=== PATIENT | female | born 1995 | race Caucasian/White ===

== ENCOUNTER 2017-01-12 09:49 | Emergency (ER) | payer SELFPAY ==
[2017-01-12 09:54] VITALS: BP 114/63; PULSE 60; TEMP 99; BMI 21.2
[2017-01-12 10:08] LABS: PH,URINE 5.5 (4.5-8); URINE APPEARANCE CLOUDY; URINE BILIRUBIN Negative (NEGATIVE); URINE BLOOD 3+ (NEGATIVE); URINE COLOR ORANGE; URINE GLUCOSE (UA) Trace (NEGATIVE); URINE KETONE Negative (NEGATIVE); URINE LEUK ESTERASE 1+ (NEGATIVE); URINE NITRITE Positive (NEGATIVE); URINE PROTEIN 2+ (NEGATIVE); URINE UROBILINOGEN 0.2 E.U/dl (0.2-1.0)
[2017-01-12 10:10] LABS: URINE BACTERIA MANY /hpf (NEGATIVE); URINE RBC 30-50 /hpf (0-3)
--- NOTE | 2017-01-12 10:11 | PDOC ---
History of Present Illness - General Chief Complaint: Urinary Problem Stated Complaint: ABD PRESSURE, DYSURIA, FREQUENCY ON URINATION Time Seen by Provider: 01/12/17 10:10 - History of Present Illness Initial Comments: 01/12/17 10:37 Chief complaint: UTI symptoms for 1 week History of present illness: Patient complains of dysuria, frequency, urgency, and hematuria for approximately one week. She has been trying to drink lots of fluids but otherwise has been on no treatment. This morning she woke up with nausea, vomited several times, clear fluid no blood. Began experiencing bilateral low back ache. No diarrhea, with normal bowel movement yesterday Review of systems: As above. In addition, no chest pain, shortness of breath, abdominal pain, visual or focal neurologic symptoms, unsteadiness of gait, fever /chills, lightheadedness, dizziness, vertigo. Denies vaginal discharge or bleeding at present. Denies vaginal lesions, lumps, sores, or blisters of the perineal area. Last menstruation one week ago, no missed menses, sexually active with no contraception. 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 Had "worms in her stool" when she was a child, but otherwise no GI disease. No recent hospitalizations. No surgeries Social/family history: Lives with family, employed, denies tobacco alcohol or nonprescription drugs. Denies family history of early coronary artery disease, metabolic disease including diabetes, GI or kidney disease, or cancer Physical exam: Alert and oriented 3, well-developed well-nourished, no acute distress, cheerful and cooperative. Does not appear to be nauseated or retching at the moment. Afebrile, vital signs normal No pallor or icterus. PERRLA, ENT clear Neck supple without bruit mass or nodes Lungs clear CV regular without murmur rub or gallop Abdomen soft nontender without mass or organomegaly. Bowel sounds normal. Nondistended No CVAT. However, points to "achiness" across the sacral area bilaterally Skin clear, no rash, adequate turgor and what mucous membranes Neurological intact Extremities no CCE Impression: UTI, cystitis, possibly progressing to pyelonephritis. Alternatively , this could be a superimposed acute gastroenteritis. 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 Plan: Urinalysis, urine culture, CBC and chemistries. 01/12/17 12:08 Past History - Past Medical History Allergies/Adverse Reactions: Allergies Allergy/AdvReac Type Severity Reaction Status Date / Time No Known Allergies Allergy Verified 01/12/17 09:50 Home Medications: Ambulatory Orders Ciprofloxacin [Cipro -] 250 mg PO BID #14 tablet 01/12/17 Multivitamins [Multivit ([facility] Formul[facility])] 1 tab PO DAILY 01/12/17 Ondansetron [Zofran Odt -] 4 mg SL TID PRN #10 od.tablet 01/12/17 Phenazopyridine HCl [Pyridium] 200 mg PO TID PRN #12 tablet 01/12/17 Other medical history: DENIES - Reproductive History Is Patient Now?: No - Psycho/Social/Smoking Cessation Hx Anxiety: No Suicidal Ideation: No Smoking Status: No Smoking History: Never smoked Have you smoked in the past 12 months: Yes Number of Cigarettes Smoked Daily: 5 Information on smoking cessation initiated: Yes Hx Alcohol Use: Yes (social) *Physical Exam - Vital Signs Last Vital Signs Temp Pulse Resp BP Pulse Ox 99 F 60 18 114/63 100 01/12/17 09:50 01/12/17 09:50 01/12/17 09:50 01/12/17 09:50 01/12/17 09:50 ED Treatment Course - LABORATORY CBC & Chemistry Diagram: 01/12/17 10:40 01/12/17 10:40 - ADDITIONAL ORDERS Additional order review: Laboratory Results 01/12/17 10:01 Urine Color [place] Urine Appearance Cloudy Urine pH 5.5 Ur Specific [place] 1.010 Urine Protein 2+ H Urine Glucose (UA) Trace Urine Ketones Negative Urine Blood 3+ H Urine Nitrite Positive Urine Bilirubin Negative Urine Urobilinogen 0.2 e.u/dl Ur Leukocyte Esterase 1+ H Urine HCG, Qual Negative Medical Decision Making - Medical Decision Making 01/12/17 12:08 WBC equal 11.1, remainder CBC and chemistries are normal. Patient has been in no discomfort, with no nausea or vomiting during observation in the ER. She is walking around well and taking by mouth fluids Urinalysis shows lots of red cells, some white cells, nitrite, and leukocyte esterase. test is negative. Begun on antibiotics, Pyridium, and Zofran as needed. Follow-up with primary physician. Fully ambulatory and in no pain or other distress upon discharge with her family. *DC/Admit/Observation/Transfer Diagnosis at time of Disposition: UTI (urinary tract infection) Qualifiers: Urinary tract infection type: acute cystitis Hematuria presence: with hematuria Qualified Code(s): N30.01 - Acute cystitis with hematuria - Discharge Dispostion Disposition: HOME Condition at time of disposition: Improved Admit: No - Prescriptions Prescriptions: Ciprofloxacin [Cipro -] 250 mg PO BID #14 tablet Phenazopyridine HCl [Pyridium] 200 mg PO TID PRN #12 tablet PRN Reason: painful urination Ondansetron [Zofran Odt -] 4 mg SL TID PRN #10 od.tablet PRN Reason: Nausea And/Or Vomiting - Referrals Referrals: Main Cortez MD [Staff Physician] - - Patient Instructions Printed Discharge Instructions: DI for Urinary Tract Infection (UTI) Additional Instructions: Return to ER if there is fever or chills or abdominal/increased back pain.
[2017-01-12] MEDS ORDERED: ONDANSETRON 4 MG/2 ML VIAL IVPB ONE (10:25)
[2017-01-12] MEDS ORDERED: ONDANSETRON 4 MG/2 ML VIAL ONE (10:32)
[2017-01-12] MEDS ORDERED: SODIUM CHLORIDE 500 ML IV STA (10:50)
[2017-01-12 11:24] LABS: MCH 28.2 pg (25.7-33.7); MCHC 32.7 g/dl (32.0-36.0); MEAN CELL VOLUME 86.1 fl (80-96); MEAN PLT VOLUME 10.1 fl (7.5-11.1); PLATELET COUNT 211 K/MM3 (134-434)
[2017-01-12 11:52] LABS: ALBUMIN 4.1 g/dl (3.5-5.0); ALK PHOS 50 U/L (32-92); ANION GAP 8 (8-16); BILIRUBIN,TOTAL 0.3 mg/dl (0.2-1.0); CALCIUM 9.6 mg/dl (8.4-10.2); CO2 25 mmol/L (22-28); CREATININE 0.7 mg/dl (0.6-1.3); GLUCOSE,RANDOM 104 mg/dl (74-106); SGOT/AST 22 U/L (10-42); SGPT/ALT 19 U/L (10-40); TOT PROT 6.8 g/dl (6.4-8.3)
== END 2017-01-12 12:20 | disposition home or self-care (01) ==
LOC: FER 09:49
PROC: 3E033GC Introduction of Other Therapeutic Substance into Peripheral Vein, Percutaneous Approach (ICD-10-PCS; principal; 2017-01-12)
PROC: 3E0337Z Introduction of Electrolytic and Water Balance Substance into Peripheral Vein, Percutaneous Approach (ICD-10-PCS; 2017-01-12)
DX: N30.01 Acute cystitis with hematuria (principal); Z87.891 Personal history of nicotine dependence
CPT/HCPCS: 36415; 80053; 81003; 81015; 84703; 85025; 87086; 87186; 99285-25

== ENCOUNTER 2017-08-28 15:46 | Emergency (ER) | payer SELFPAY ==
[2017-08-28 15:51] VITALS: BP 112/68; PULSE 84; TEMP 98.6; BMI 20.2
[2017-08-28] MEDS ORDERED: KETOROLAC TROMETHAMINE 30 MG/1 ML VIAL IM ONE (15:55)
[2017-08-28] MEDS ORDERED: diazePAM 5 MG TABLET PO ONE (15:56)
[2017-08-28] MEDS ORDERED: ACETAMINOPHEN 325 MG TABLET (FP) PO ONE (15:56)
[2017-08-28] MEDS ORDERED: FLUCONAZOLE 50 MG TABLET PO ONE (16:18)
--- NOTE | 2017-08-28 16:20 | PDOC ---
History of Present Illness - General History Source: Patient Exam Limitations: No Limitations <Maria Teresa Baldears - Last Filed: 08/28/17 16:15> - General History Source: Patient Exam Limitations: No Limitations - History of Present Illness Initial Comments: 08/28/17 16:33 The patient is a 22 year old female with a significant past medical history of yeast infections, who presents to the ED with constant vaginal dryness, itchiness around the vagina, and white thick vaginal discharge. Patient complains of some dysuria as well, but denies flank pain or lower abdominal pain. Denies frequency, hematuria. Patient states she tried vagisil but with no relief. She states she has been sexually active with one partner and has been using condoms. She has no concerns for std exposures. Denies vaginal discharge, bleeding, odor. Patient denies any new changes in detergents, hair coloring, condoms. <Tony Keller - Last Filed: 08/28/17 16:36> - General Chief Complaint: Vaginal Sxs Stated Complaint: VAGINAL DRYNESS,BURNING AND IRRITATION X 2 WEEKS Time Seen by Provider: 08/28/17 15:49 Past History - Past Medical History Other medical history: PT DENIES - Suicide/Smoking/Psychosocial Hx Smoking Status: No Smoking History: Current some day smoker Have you smoked in the past 12 months: No Number of Cigarettes Smoked Daily: 1 Information on smoking cessation initiated: Yes 'Breaking Loose' booklet given: 01/12/17 Hx Alcohol Use: No Drug/Substance Use Hx: No Substance Use Type: None <Maria Teresa Balderas - Last Filed: 08/28/17 16:15> <Tony Keller - Last Filed: 08/28/17 16:36> - Past Medical History Allergies/Adverse Reactions: Allergies Allergy/AdvReac Type Severity Reaction Status Date / Time No Known Allergies Allergy Verified 08/28/17 15:47 Home Medications: Ambulatory Orders Fluconazole [Diflucan] 150 mg PO ONCE #1 tablet 08/28/17 Miconazole/Cleanser 17 On Wipe [Monistat 3 Combo Pack] 1 each VG HS #1 kit MDD 1 08/28/17 Review of Systems - Review of Systems Able to Perform ROS?: Yes Comments:: 08/28/17 16:33 GENERAL/CONSTITUTIONAL: No fever or chills. No weakness. HEAD, EYES, EARS, NOSE AND THROAT: No change in vision. No ear pain or discharge. No sore throat. CARDIOVASCULAR: No chest pain or shortness of breath. RESPIRATORY: No cough, wheezing, or hemoptysis. GASTROINTESTINAL: No nausea, vomiting, diarrhea or constipation. GENITOURINARY: + dysuria. No frequency, or change in urination. VAGINAL: + white thick vaginal discharge. irritation and dryness around the vagina. MUSCULOSKELETAL: No joint or muscle swelling or pain. No neck or back pain. SKIN: No rash NEUROLOGIC: No headache, vertigo, loss of consciousness, or change in strength/ sensation. ENDOCRINE: No increased thirst. No abnormal weight change. HEMATOLOGIC/LYMPHATIC: No anemia, easy bleeding, or history of blood clots. ALLERGIC/IMMUNOLOGIC: No hives or skin allergy. <Tony Keller - Last Filed: 08/28/17 16:36> *Physical Exam - Vital Signs Last Vital Signs Temp Pulse Resp BP Pulse Ox 98.6 F 84 18 112/68 100 08/28/17 15:46 08/28/17 15:46 08/28/17 15:46 08/28/17 15:46 08/28/17 15:46 <Maria Teresa Balderas - Last Filed: 08/28/17 16:15> - Vital Signs Last Vital Signs Temp Pulse Resp BP Pulse Ox 98.6 F 84 18 112/68 100 08/28/17 15:46 08/28/17 15:46 08/28/17 15:46 08/28/17 15:46 08/28/17 15:46 - Physical Exam Comments: 08/28/17 16:35 GENERAL: Awake, alert, and fully oriented, in no acute distress HEAD: No signs of trauma EYES: PERRLA, EOMI, sclera anicteric, conjunctiva clear ENT: Auricles normal inspection, hearing grossly normal, nares patent, oropharynx clear without exudates. Moist mucosa NECK: Normal ROM, supple, no lymphadenopathy, JVD, or masses LUNGS: Breath sounds equal, clear to auscultation bilaterally. No wheezes, and no crackles HEART: Regular rate and rhythm, normal S1 and S2, no murmurs, rubs or gallops ABDOMEN: Soft, nontender, normoactive bowel sounds. No guarding, no rebound. No masses BACK: no cva tenderness. VAGINAL: Some white thick discharge. No external skin lesions. No CMT and adnexal tenderness. EXTREMITIES: Normal range of motion, no edema. No clubbing or cyanosis. No cords, erythema, or tenderness NEUROLOGICAL: Cranial nerves II through XII grossly intact. Normal speech, normal gait SKIN: Warm, Dry, normal turgor, no rashes or lesions noted. <Tony Keller - Last Filed: 08/28/17 16:36> ED Treatment Course - Medications Given in the ED: ED Medications Discontinued Medications Generic Name Dose Route Start Last Admin Trade Name Freq PRN Reason Stop Dose Admin Acetaminophen 650 mg 08/28/17 15:56 08/28/17 16:04 Tylenol - PO 08/28/17 15:57 Not Given ONCE ONE Diazepam 5 mg 08/28/17 15:56 08/28/17 16:04 Valium - PO 08/28/17 15:57 Not Given ONCE ONE Ketorolac Tromethamine 30 mg 08/28/17 15:55 08/28/17 16:04 Toradol Injection - IM 08/28/17 15:56 Not Given ONCE ONE <Maria Teresa Balderas - Last Filed: 08/28/17 16:15> - ADDITIONAL ORDERS Additional order review: Laboratory Results 08/28/17 16:11 Urine HCG, Qual Negative - Medications Given in the ED: ED Medications Discontinued Medications Generic Name Dose Route Start Last Admin Trade Name Freq PRN Reason Stop Dose Admin Acetaminophen 650 mg 08/28/17 15:56 08/28/17 16:04 Tylenol - PO 08/28/17 15:57 Not Given ONCE ONE Diazepam 5 mg 08/28/17 15:56 08/28/17 16:04 Valium - PO 08/28/17 15:57 Not Given ONCE ONE Ketorolac Tromethamine 30 mg 08/28/17 15:55 08/28/17 16:04 Toradol Injection - IM 08/28/17 15:56 Not Given ONCE ONE <Tony Keller - Last Filed: 08/28/17 16:36> Medical Decision Making - Medical Decision Making 08/28/17 16:16 22 yo F with sxs c/w vaginal irritation. likely candidiasis. plan diflucan, and monistat 3. will send chlamydia and gonorhea. dc. <Maria Teresa Balderas - Last Filed: 08/28/17 16:15> *DC/Admit/Observation/Transfer - Discharge Dispostion Admit: No <AndreyMaria Teresa - Last Filed: 08/28/17 16:15> - Attestations Scribe Attestion: 08/28/17 16:36 Documentation prepared by Tony Keller, acting as medical lab technologist for Maria Teresa Balderas MD, MD. <Tony Keller - Last Filed: 08/28/17 16:36> Diagnosis at time of Disposition: Vaginal candidiasis - Discharge Dispostion Condition at time of disposition: Stable - Prescriptions Prescriptions: Fluconazole [Diflucan] 150 mg PO ONCE #1 tablet Miconazole/Cleanser 17 On Wipe [Monistat 3 Combo Pack] 1 each VG HS #1 kit MDD 1 - Patient Instructions Printed Discharge Instructions: Vaginal Yeast Infection Additional Instructions: you should use monistate 3 combo pack use suppository intravaginally each night x 3 nights. you can use the itching cream for external itching. for persistant symptoms you can take diflucan 150mg in 2 - 3 days. follow up with a beauty school instructor for a annual pap check to screen for cervical cancer. you will be called if any test results are abnormal from today.
[2017-08-28 16:31] LABS: PH,URINE 8.5 (4.5-8); URINE APPEARANCE Clear; URINE BILIRUBIN Negative (NEGATIVE); URINE BLOOD Negative (NEGATIVE); URINE GLUCOSE (UA) Negative (NEGATIVE); URINE KETONE Negative (NEGATIVE); URINE NITRITE Negative (NEGATIVE); URINE PROTEIN Negative (NEGATIVE); URINE UROBILINOGEN 0.2 (0.2-1.0)
[2017-08-28 16:34] LABS: URINE COLOR YELLOW; URINE LEUK ESTERASE 1+ (NEGATIVE)
[2017-08-28] MEDS ORDERED: FLUCONAZOLE 150 MG TABLET PO ONE (16:34)
[2017-08-28 18:08] LABS: URINE RBC 0-1 /hpf (0-3)
[2017-08-28 18:09] LABS: URINE BACTERIA FEW /hpf (NEGATIVE)
== END 2017-08-28 17:07 | disposition home or self-care (01) ==
LOC: FER 15:46
DX: B37.3 Candidiasis of vulva and vagina (principal); F17.210 Nicotine dependence, cigarettes, uncomplicated
CPT/HCPCS: 36415; 81003; 81015; 84703; 87491; 87591; 99282-25

== ENCOUNTER 2018-01-12 18:19 | Emergency (ER) | payer SELFPAY ==
--- NOTE | 2018-01-12 18:28 | PDOC ---
History of Present Illness - General Chief Complaint: Vaginal Sxs Stated Complaint: F/U FOR POSITVE TEST RESULT Time Seen by Provider: 01/12/18 18:28 History Source: Patient Exam Limitations: No Limitations Past History - Past Medical History Allergies/Adverse Reactions: Allergies Allergy/AdvReac Type Severity Reaction Status Date / Time No Known Allergies Allergy Verified 08/28/17 15:47 Home Medications: Ambulatory Orders Fluconazole [Diflucan] 150 mg PO ONCE #1 tablet 08/28/17 Miconazole/Cleanser 17 On Wipe [Monistat 3 Combo Pack] 1 each VG HS #1 kit MDD 1 08/28/17 Doxycycline Monohydrate [Monodox] 100 mg PO Q12H #14 capsule 12/14/17 - Suicide/Smoking/Psychosocial Hx Smoking Status: No Smoking History: Current some day smoker Have you smoked in the past 12 months: No Number of Cigarettes Smoked Daily: 1 'Breaking Loose' booklet given: 01/12/17 Hx Alcohol Use: No Drug/Substance Use Hx: No Substance Use Type: None
[2018-01-12] MEDS ORDERED: AZITHROMYCIN 1 GM PACKET PO ONE (18:43)
--- NOTE | 2018-01-12 18:53 | PDOC ---
History of Present Illness - General History Source: Patient Exam Limitations: No Limitations - History of Present Illness Initial Comments: 01/12/18 18:52 The patient is a 22 year old female with a significant past medical history of yeast infections, who presents to the ED for follow up after a visit in August after which she was called back with positive result for Chlamydia. However she lost her doxycycline medication while traveling to [place] and presents today with similar symptoms that she presented with the last time: vaginal dryness, itchiness, and discharge (non-malodorous) Denies urinary frequency and hematuria. <Bharat Victor - Last Filed: 01/12/18 19:11> <Swapna Can I - Last Filed: 01/12/18 19:29> - General Chief Complaint: Vaginal Sxs Stated Complaint: F/U FOR POSITVE TEST RESULT Time Seen by Provider: 01/12/18 18:28 Past History - Suicide/Smoking/Psychosocial Hx Smoking Status: No Smoking History: Current some day smoker Have you smoked in the past 12 months: No Number of Cigarettes Smoked Daily: 1 'Breaking Loose' booklet given: 01/12/17 Hx Alcohol Use: No Drug/Substance Use Hx: No Substance Use Type: None <Bharat Victor - Last Filed: 01/12/18 19:11> <Swapna Can I - Last Filed: 01/12/18 19:29> - Past Medical History Allergies/Adverse Reactions: Allergies Allergy/AdvReac Type Severity Reaction Status Date / Time No Known Allergies Allergy Verified 08/28/17 15:47 Home Medications: Ambulatory Orders NK [No Known Home Medication] 01/12/18 Review of Systems - Review of Systems Able to Perform ROS?: Yes Is the patient limited Kazakh proficient: No Constitutional: No: Symptoms Reported HEENTM: No: Symptoms Reported Respiratory: No: Symptoms reported Cardiac (ROS): No: Symptoms Reported ABD/GI: No: Symptoms Reported : Yes: See HPI Musculoskeletal: No: Symptoms Reported Integumentary: No: Symptoms Reported Neurological: No: Symptoms reported All Other Systems: Reviewed and Negative <Bharat Victor - Last Filed: 01/12/18 19:11> *Physical Exam - Physical Exam General Appearance: Yes: Nourished, Appropriately Dressed. No: Apparent Distress HEENT: positive: EOMI, GEETHA, Normal ENT Inspection Neck: negative: Tender Respiratory/Chest: positive: Lungs Clear, Normal Breath Sounds. negative: Chest Tender Cardiovascular: positive: Regular Rhythm, Regular Rate, S1, S2 Gastrointestinal/Abdominal: positive: Normal Bowel Sounds, Flat, Soft. negative : Tender Rectal Exam: positive: heme negative stool, normal exam Integumentary: positive: Normal Color, Dry, Warm Neurologic: positive: Fully Oriented, Alert, Normal Mood/Affect, Normal Response <Bharat Victor - Last Filed: 01/12/18 19:11> - Vital Signs Last Vital Signs Temp Pulse Resp BP Pulse Ox 98.3 F 77 20 125/75 99 01/12/18 18:20 01/12/18 18:20 01/12/18 18:20 01/12/18 18:20 01/12/18 18:20 <Swapna Can I - Last Filed: 01/12/18 19:29> ED Treatment Course - ADDITIONAL ORDERS Additional order review: Laboratory Results 01/12/18 18:50 Urine Color Yellow Urine Appearance Clear Urine pH 6.0 Ur Specific [place] 1.025 Urine Protein 1+ H Urine Glucose (UA) Negative Urine Ketones Negative Urine Blood Negative Urine Nitrite Negative Urine Bilirubin Negative Urine Urobilinogen 0.2 Ur Leukocyte Esterase 2+ H Urine HCG, Qual Negative - Medications Given in the ED: ED Medications Discontinued Medications Generic Name Dose Route Start Last Admin Trade Name Freq PRN Reason Stop Dose Admin Azithromycin 1 gm 01/12/18 18:43 01/12/18 19:26 Zithromax - PO 01/12/18 18:44 1 gm ONCE ONE Administration Ceftriaxone Sodium 250 mg 01/12/18 18:44 01/12/18 19:26 Rocephin - IM 01/12/18 18:45 250 mg ONCE ONE Administration <Swapna Can I - Last Filed: 01/12/18 19:29> Progress Note - Progress Note Progress Note: Pt seen by the resident under my direct supervision. Documentation has been prepared under my direction and personally reviewed by me in its entirety. I attest that this document accurately reflects all work, treatment, procedures and medical decision-making performed. I agree with plan as outlined by the resident. Assessment and plan: This is a 22-year-old female who has history of STDs in the past. Patient was inadequately treated for her last STD because she said she lost the medication. Patient now returns with return of her symptoms. Patient was given azithromycin and ceftriaxone here in the emergency room for presumptive STDs and told to follow-up with her SUPER[employer] for follow-up. <Swapna Can I - Last Filed: 01/12/18 19:29> Medical Decision Making - Medical Decision Making 01/12/18 19:01 Will treat empirically for Chlamydia/gono. Will send a UA and a UPreg. 01/12/18 19:12 Leuks positive. neg nitrite. <Bharat Victor - Last Filed: 01/12/18 19:11> *DC/Admit/Observation/Transfer - Discharge Dispostion Admit: No <Bharat Victor - Last Filed: 01/12/18 19:11> <Swapna Can I - Last Filed: 01/12/18 19:29> Diagnosis at time of Disposition: UTI (urinary tract infection), Chlamydia infection - Discharge Dispostion Disposition: HOME - Patient Instructions Printed Discharge Instructions: Facts About Sexually Transmitted Infections, How to Detect and Treat STDs Additional Instructions: Come back to the Er for any new, worsening or concerning symptoms. Follow up with your primary care provider or OBGYN within the week
[2018-01-12 18:59] VITALS: BP 125/75; PULSE 77; TEMP 98.3; BMI 19.3
[2018-01-12 19:07] LABS: URINE APPEARANCE Clear; URINE BILIRUBIN Negative (NEGATIVE); URINE BLOOD Negative (NEGATIVE); URINE GLUCOSE (UA) Negative (NEGATIVE); URINE KETONE Negative (NEGATIVE); URINE NITRITE Negative (NEGATIVE); URINE UROBILINOGEN 0.2 (0.2-1.0)
[2018-01-12 19:08] LABS: URINE COLOR YELLOW; URINE LEUK ESTERASE 2+ (NEGATIVE); URINE PROTEIN 1+ (NEGATIVE)
[2018-01-12 19:09] LABS: HCG,QUALITATIVE URINE NEGATIVE
[2018-01-12] MEDS ORDERED: AZITHROMYCIN 250 MG TABLET ONE (19:19)
[2018-01-12 20:53] LABS: EPI CELLS FEW /HPF; URINE BACTERIA FEW /hpf (NEGATIVE); URINE RBC 0-2 /hpf (0-3)
== END 2018-01-12 19:30 | disposition home or self-care (01) ==
LOC: FER 18:19
DX: A74.9 Chlamydial infection, unspecified (principal); N39.0 Urinary tract infection, site not specified
CPT/HCPCS: 81003; 81015; 84703; 99281-25

== ENCOUNTER 2022-01-08 09:25 | Emergency (ER) | payer OTHER ==
[2022-01-08 09:42] VITALS: BP 107/58; PULSE 71; TEMP 97.5; BMI 21.2
[2022-01-08] MEDS ORDERED: LORATADINE 10 MG TABLET PO ONE (10:08)
[2022-01-08] MEDS ORDERED: LORATADINE 10 MG TABLET ONE (10:11)
== END 2022-01-08 10:20 | disposition home or self-care (01) ==
LOC: FER 09:25
DX: L50.9 Urticaria, unspecified (principal)
CPT/HCPCS: 99283-25

== ENCOUNTER 2024-01-28 13:29 | Emergency (ER) | payer OTHER ==
[2024-01-28 13:40] VITALS: BP 100/58; PULSE 56; RESP 16; TEMP 98.6; BMI 21.6
[2024-01-28] MEDS ORDERED: LIDOCAINE 5% TOPICAL PATCH ONE (14:10)
[2024-01-28] MEDS ORDERED: METHOCARBAMOL 500 MG TABLET ONE (14:10)
[2024-01-28] MEDS: IBUPROFEN 600 MG TABLET (FP) PO ONE (14:14)
[2024-01-28] MEDS: LIDOCAINE 5% TOPICAL PATCH TP ONE (14:14)
[2024-01-28] MEDS: METHOCARBAMOL 500 MG TABLET PO ONE (14:15)
[2024-01-28] MEDS ORDERED: LIDOCAINE PATCH REMOVAL MC ONE (22:00)
== END 2024-01-28 14:19 | disposition home or self-care (01) ==
LOC: FER 13:29
DX: M54.2 Cervicalgia (principal); R51.9 Headache, unspecified; M54.50 Low back pain, unspecified; S13.4XXA Sprain of ligaments of cervical spine, initial encounter; S39.012A Strain of muscle, fascia and tendon of lower back, initial encounter; V43.52XA Car driver injured in collision with other type car in traffic accident, initial encounter; Y92.410 Unspecified street and highway as the place of occurrence of the external cause
CPT/HCPCS: 99283-25